=== PATIENT | male | born 1935 | race Caucasian/White ===

== ENCOUNTER 2023-11-30 07:01 | Day surgery (SDC) | payer MEDICARE, BC, SELFPAY ==
[2023-11-30] VITALS (7 sets, daily range): BP systolic 78–133; BP diastolic 45–71; PULSE 56–76; RESP 14–30; TEMP 36.4–36.7; O2SAT 95–99; BMI 31.3
--- NOTE | 2023-11-30 | PATH_ITS ---
[facility] Accession Number: [id number] No. of containers..02 Tissue . 01 Material submitted: . PART A: colon - RIGHT COLON MASS PART B: rectosigmoid junction - RECTOSIGMOID POLYPS X 4 . 01 Diagnosis: A. Right Colon, Mass, Biopsies: Superficial fragments of tubulovillous adenoma. Additional levels were examined. No evidence of malignancy or high-grade dysplasia. . B. Rectosigmoid Colon, Polyps x4: Tubular adenomas. [facility] 12/05/2023 1050 Local . 01 Comment: A. The endoscopic impression of a 3-5 cm long circumferential lesion is noted. Complete excision of the lesion is recommended. . 01 Electronically signed: . Kenisha Vance MD, Pathologist NPI- [id number] . 01 Gross description: . Part A: RIGHT COLON MASS: Received in formalin is multiple fragment(s) of abraham, soft tissue measuring 1.2 x 0.5 x 0.1 cm in aggregate submitted entirely in 1 cassette(s) Part B: RECTOSIGMOID POLYPS X 4: Received in formalin is multiple fragment(s) of abraham, soft tissue measuring 1.5 x 1.0 x 0.2 cm in aggregate submitted entirely in 1 cassette(s) /AAY 12/01/2023 0540 Local . 01 Pathologist provided ICD-10: D12.7, D12.6 . 01 CPT . 915725, 536470 Specimen Comment: A courtesy copy of this report has been sent to [phone] Performed at: 01 [facility] [address] [place] [address] [address], [place], [place] [id number] MD Anshu Hardwick MD Phone: [phone]
[2023-11-30] MEDS: LACTATED RINGERS 1,000 ML 84 ML IV (07:25)
--- NOTE | 2023-11-30 08:39 | PM.PREOP ---
Pre-operative Note COVID-19 COVID-19 status: Negative Interval Note History & Physical reviewed/Exam performed by Physician: Yes Changes to H&P: No ASA Class (for procedural sedation): III
--- NOTE | 2023-11-30 09:06 | PM.OP.COLON ---
Operative Date/Time/Diagnoses Date of procedure: 11/30/23 Pre-op diagnosis: See indication and findings Procedure & Clinicians Indications: Colonoscopy right-sided colonic mass seen on imaging need for further evaluation Surgeon: Juan Mari Procedure Notes Procedure in detail: After informed consent was obtained the patient was placed in the left lateral decubitus position. The video colonoscope was introduced the rectum slowly advanced cecum. Cecum was identified by appendiceal orifice. Preparation was good. Slow withdrawal mucosa was carefully examined. Scope was removed. The patient tolerated procedure well. Blood loss none Complications none Sedation mac Findings 1. 4-5 mm polyp in the cecum not removed as will be removed at the time of surgery 2. 3-5 cm long circumferential lesion in the mid right colon. Multiple biopsies were taken. 3. 5 mm polyp in the distal ascending colon not removed as will be removed at the time of surgery 4. Pancolonic diverticulosis 5. Four polyps in the rectosigmoid ranging in size from 4 mm to 8 mm. All removed with cold snare and retrieved. Patient should make a follow-up appoint with Dr. Paz in his office. We will give him a copy of his photographs and procedure report. He can restart his Eliquis in 5 days
== END 2023-11-30 09:40 | disposition home or self-care (01) ==
PROVIDERS: PCP Physician Assistant Medical; Referring Provider Internal Medicine Gastroenterology; Visit Provider Internal Medicine Gastroenterology
PROC: 0DJD8ZZ Inspection of Lower Intestinal Tract, Via Natural or Artificial Opening Endoscopic (ICD-10-PCS; CPT 45378; principal; 2023-11-30 08:30)
DX: R93.3 Abnormal findings on diagnostic imaging of other parts of digestive tract (principal); K57.30 Diverticulosis of large intestine without perforation or abscess without bleeding; D12.2 Benign neoplasm of ascending colon; D12.7 Benign neoplasm of rectosigmoid junction
CPT/HCPCS: 45385; 45380; J2704

== ENCOUNTER 2025-01-16 12:50 | Day surgery (SDC) | payer MEDICARE, BC, SELFPAY ==
[2025-01-16] VITALS (8 sets, daily range): BP systolic 80–128; BP diastolic 40–64; PULSE 47–57; RESP 13–17; TEMP 36.2–36.6; O2SAT 95–97
--- NOTE | 2025-01-16 | PATH_ITS ---
[facility] Accession Number: [id number] No. of containers..03 Tissue . 01 Material submitted: . PART A: stomach - STOMACH POLYP PART B: esophagus - ESOPHAGUS PART C: rectum - RECTAL POLYP . 01 Diagnosis: Part A: STOMACH POLYP: Gastric hyperplastic polyp, with mild chronic inflammation. No Helicobacter organisms identified. No intestinal metaplasia, dysplasia, or malignancy identified. . Part B: ESOPHAGUS: Squamocolumnar junctional mucosa with mild chronic inflammation. No goblet cell metaplasia, dysplasia, or malignancy identified. . Part C: RECTAL POLYP: Tubulovillous adenoma with focal high-grade dysplasia. No invasive malignancy identified. See comment. . Specimen Comments: No high-grade dysplasia is seen at the cauterized polyp margin, although low-grade dysplasia abuts the cauterized margin. Correlation with the endoscopic appearance before and after polypectomy is recommended for further evaluation, to assess the completeness of removal of the polyp. [facility] 01/21/2025 1516 Local . 01 Electronically signed: . Anshu Hardwick MD, Pathologist NPI- [id number] . 01 Gross description: . A. Received in formalin with two patient identifiers and 1. Stomach polyp, are two abraham soft tissue fragments, both measuring 0.3 cm in greatest dimension, submitted in A1. . B. Received in formalin with two patient identifiers and 2. Esophagus, are two abraham soft tissue fragments, 0.3-0.5 cm in greatest dimension, submitted in B1. . C. Received in formalin with two patient identifiers and rectal polyp, are two abraham soft tissue fragments measuring 0.6 x 0.3 x 0.3 cm and 0.9 x 0.6 x 0.7 cm. The largest fragment is inked and bisected. All submitted in C1. ([id number]) /MRV 01/21/2025 1516 Local . 01 Microscopic: . Part A: STOMACH POLYP: An immunohistochemical stain was performed to evaluate for Helicobacter organisms and is negative. The control stains appropriately. * This test was developed and the performance characteristics were validated by [employer]. It has not been cleared or approved by the Food and Drug Administration. . Part B: ESOPHAGUS: An ABPAS stain was performed to evaluate for goblet cell metaplasia and is negative. The control stains appropriately. . 01 Pathologist provided ICD-10: D12.8, K20.90, K31.7 . 01 CPT . 744079, 947033, 545991, 258382, [id number] Specimen Comment: A courtesy copy of this report has been sent to [phone] Performed at: [address] [id number] MD Anshu Hardwick MD Phone: [phone]
--- NOTE | 2025-01-16 13:20 | PM.PREOP ---
Pre-operative Note Interval Note History & Physical reviewed/Exam performed by Physician: Yes Changes to H&P: No ASA Class (for procedural sedation): III
--- NOTE | 2025-01-16 13:20 | PM.OP.EC ---
Operative Date/Time/Diagnoses Date of procedure: 01/16/25 Pre-op diagnosis: See indication and findings Procedure & Clinicians Study performed: Colonoscopy and EGD Same procedure as scheduled: Yes Indications: 1st 1 year follow-up for colon cancer. In addition abdominal discomfort and chest discomfort with probable GE reflux Surgeon: Juan Mari Procedure Notes Procedure in detail: After informed consent was obtained the patient was placed in left lateral decubitus position. The video upper scope was placed into the oropharynx and with the patient's help swallowed into the esophagus. The esophagus stomach and duodenal were carefully examined. On withdrawal retroflexed view the GE junction was performed. The scope was removed. The patient tolerated the procedure well. The patient was then turned and the colonoscope substituted. This was introduced the rectum slowly advanced cecum. On slow withdrawal mucosa was carefully examined. The scope was removed. The patient tolerated procedure well. Blood loss none Complications none Sedation mac Findings EGD 1. 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 Despite the fact that he will not need surveillance, I elected to take 2 biopsies. 2. Bright red 6 mm polyp high in the fundus on a fold. This was biopsied x2 to rule out neoplasia 3. Normal distal stomach 4. Normal duodenal bulb and sweep Colonoscopy 1. Normal ileocolonic anastomosis, wide-open 2. Scattered sigmoid diverticulosis 3. 1.5 cm pedunculated polyp as measured on the head with longer pedicle. The base was injected with [id number] epinephrine and removed with her be on the endo cut setting. Base appeared clean. Patient does not need routine follow-up EGD or colonoscopy given his age. He should stay off his Eliquis for another 3-5 days at least. We will be in touch regarding biopsies.
[2025-01-16] MEDS: LACTATED RINGERS 1,000 ML 42 ML IV (13:33)
[2025-01-16] MEDS: EPINEPHrine 1 MG/ML SUBCUT (14:33)
== END 2025-01-16 16:13 | disposition home or self-care (01) ==
PROVIDERS: PCP Physician Assistant Medical; Referring Provider Internal Medicine Gastroenterology; Visit Provider Internal Medicine Gastroenterology
PROC: 0DJ08ZZ Inspection of Upper Intestinal Tract, Via Natural or Artificial Opening Endoscopic (ICD-10-PCS; CPT 45390; principal; 2025-01-16 14:00)
PROC: 0DJD8ZZ Inspection of Lower Intestinal Tract, Via Natural or Artificial Opening Endoscopic (ICD-10-PCS; CPT 45378; 2025-01-16 14:00)
DX: Z12.11 Encounter for screening for malignant neoplasm of colon (principal); Z85.038 Personal history of other malignant neoplasm of large intestine; K21.9 Gastro-esophageal reflux disease without esophagitis; Z79.01 Long term (current) use of anticoagulants; Z95.1 Presence of aortocoronary bypass graft; Z90.49 Acquired absence of other specified parts of digestive tract; K29.50 Unspecified chronic gastritis without bleeding; K31.7 Polyp of stomach and duodenum; K20.90 Esophagitis, unspecified without bleeding; D12.8 Benign neoplasm of rectum
CPT/HCPCS: 45390; 43239; J0171; J2704